=== PATIENT | female | born 1990 | race Caucasian/White ===

== ENCOUNTER 2017-11-14 05:30 | Inpatient (IN) | payer OTHER, SELFPAY ==
[2017-11-07 11:02] VITALS: BMI 33.5
[2017-11-14] VITALS (23 sets, daily range): BP systolic 88–121; BP diastolic 48–80; PULSE 64–85; RESP 16–20; TEMP 35.8–36.6; O2SAT 96–100; BMI 33.7
[2017-11-14] MEDS: Lactated Ringers 1,000 ML 999 ML IV (05:55)
[2017-11-14 06:13] LABS: Absolute Lymphocyte Count 2.35 X10^3/ul (0.83-4.51); Absolute Neutrophil Count 7.5 X10^3/uL (2.0-7.7); Basophil# 0.02 X10^3/uL; Basophil% 0.2 % (0-1); Eosinophil# 0.24 X10^3/uL; Eosinophils% 2.2 % (0-5); Hematocrit 38.5 % (37-47); Hemoglobin 13.7 g/dl (12.0-15.0); Lymphocyte # 2.35 X10^3/ul (4.0); Lymphocyte % 21.3 % (19-41); Mean Corp Hgb Conc 35.6 g/gl (32-36); Mean Corpuscular Hgb 31.6 pg (27.0-32.0); Mean Corpuscular Volume 88.7 fL (81-99); Mean Platelet Vol. 10.2 fl (6.2-12.0); Monocyte# 0.84 X10^3/uL; Monocyte% 7.6 % (0-10); Platelet Count 191 K/mm3 (150-450); RBC Distribution Width CV 12.8 % (11.6-14.6); RBC Distribution Width SD 41.2 fl (35.1-43.9); Red Blood Count 4.34 M/mm3 (4.2-5.4)
[2017-11-14 06:16] LABS: POSITIVE COUNT NO; POSITIVE DIFFERENTIAL NO; POSITIVE MORPHOLOGY NO
[2017-11-14] MEDS: Lactated Ringers 1,000 ML 150 ML IV (06:51)
[2017-11-14] MEDS: Sodium Citrate/Citric Acid 30 ML UDC PO (06:51)
[2017-11-14] MEDS: Cefazolin 2 GM in 0.9% Normal Saline 100 ML IV (07:04)
[2017-11-14] MEDS: Oxytocin 30 units/NS 500 ml 30 UNITS/500 ML IV.SOLN 167 UNITS IV (07:50)
[2017-11-14] MEDS: Ketorolac 30 MG/ML Syringe IV ×3 (08:09→19:18)
[2017-11-14] MEDS: Ondansetron 4 MG/2 ML Vial IV (08:09)
--- NOTE | 2017-11-14 08:44 | PCM.OB.CSR ---
Delivery Classification: Scheduled Final NAIDA: 11/19/17 Gestational age: 39 Weeks and 2 Days Indications for : Repeat Elective Description of Procedure: Patient taken to OR where spinal anesthesia placed. She was prepped and draped in normal sterile fashion in a dorsal lithotomy position with a leftward tilt. After ensuring adequacy of anesthesia the Pfannensteil skin incision was made and carried through to the underlying fascia w/ a bovie. The fascia was incised in the midline and carried laterally with the Doyle scissors. Scar tissue was noted involving the fascia, rectus muscle & peritoneum. The rectus muscles were off the fascia with the Metzenbaum scissors and cautery. The rectus muscles were then in the midline carefully using cautery & the Metzenbaum scissors. The peritoneum was grasped & entered carefully with the Metzenbaum scissors. The bladder flap was dissected down with the Metzenbaum scissors and blunt dissection. At this time a small uterine window (1cm)was noted on the right was noted. The fetus was vertex and the head was brought to the incision in the flexed position. With good fundal pressure the head did not deliver. Rectus muscles were carefully cut on both sides. The head then delivered easily with fundal pressure. Gentle traction placed on head to allow delivery of anterior & posterior shoulders. No excess traction placed on head. Body delivered easily. The cord was clamped and cut after 1 minute delay and the infant handed off to waiting RN. The placenta was delivered w/ gentle traction and fundal massage and the uterus was exteriorized and cleared of all clots and debris. The uterine incision was closed with 1 vicryl suture in a running locked fashion. The uterus was returned to the peritoneal cavity which was cleared of all clots and debris. Pelvis was irrigated. The uterine incision was reexamined and found to be hemostatic. Some preet was placed over the uterine incision & bladder peritoneum due to the denuded areas. The fascia was closed with looped PDS suture in a running standard fashion. The subcutaneous tissue was examined amd any bleeding bovie cauterized. The subcutaneous tissue was reapproximated with 3-0 vicryl suture. The skin was closed in a subcuticular fashion by the MEDICAL INSURANCE COLLECTOR with me present in the labor and delivery suite. I performed the remainder of the procedure w/ assistance. Amniotic Membrane Rupture Type: Artificial Amniotic Fluid Description: Clear Placenta [facility]: [facility] Drain: Tran to straight drain Fluids Replaced: 1 L Cord Entanglement: None Cord Vessel Description: 3 Vessels Esitmated Blood Loss (ml): 700ml Gender: Male (1 minute): 9 (5 minute): 9 Delayed cord clamping: Yes Pre-op Antibiotic Given: Ancef 2 grams IV x1
[2017-11-14] MEDS: Lactated Ringers 1,000 ML 100 ML IV ×3 (08:45→23:00)
--- NOTE | 2017-11-14 08:55 | OP.PCM_ITS ---
Delivery Classification: Scheduled Final NAIDA: 11/19/17 Gestational age: 39 Weeks and 2 Days Indications for : Repeat Elective Description of Procedure: Patient taken to OR where spinal anesthesia placed. She was prepped and draped in normal sterile fashion in a dorsal lithotomy position with a leftward tilt. After ensuring adequacy of anesthesia the Pfannensteil skin incision was made and carried through to the underlying fascia w/ a bovie. The fascia was incised in the midline and carried laterally with the Doyle scissors. Scar tissue was noted involving the fascia, rectus muscle & peritoneum. The rectus muscles were off the fascia with the Metzenbaum scissors and cautery. The rectus muscles were then in the midline carefully using cautery & the Metzenbaum scissors. The peritoneum was grasped & entered carefully with the Metzenbaum scissors. The bladder flap was dissected down with the Metzenbaum scissors and blunt dissection. At this time a small uterine window ( 1cm)was noted on the right was noted. The fetus was vertex and the head was brought to the incision in the flexed position. With good fundal pressure the head did not deliver. Rectus muscles were carefully cut on both sides. The head then delivered easily with fundal pressure. Gentle traction placed on head to allow delivery of anterior & posterior shoulders. No excess traction placed on head. Body delivered easily. The cord was clamped and cut after 1 minute delay and the handed off to waiting RN. The placenta was delivered w/ gentle traction and fundal massage and the uterus was exteriorized and cleared of all clots and debris. The uterine incision was closed with 1 vicryl suture in a running locked fashion. The uterus was returned to the peritoneal cavity which was cleared of all clots and debris. Pelvis was irrigated. The uterine incision was reexamined and found to be hemostatic. Some preet was placed over the uterine incision & bladder peritoneum due to the denuded areas. The fascia was closed with looped PDS suture in a running standard fashion. The subcutaneous tissue was examined amd any bleeding bovie cauterized. The subcutaneous tissue was reapproximated with 3-0 vicryl suture. The skin was closed in a subcuticular fashion by the TEMPLATE FITTER with me present in the labor and delivery suite. I performed the remainder of the procedure w/ assistance. Amniotic Membrane Rupture Type: Artificial Amniotic Fluid Description: Clear Placenta Disposition: [facility] Drain: Tran to straight drain Fluids Replaced: 1 L Cord Entanglement: None Cord Vessel Description: 3 Vessels Esitmated Blood Loss (ml): 700ml Gender: Male (1 minute): 9 (5 minute): 9 Delayed cord clamping: Yes Pre-op Antibiotic Given: Ancef 2 grams IV x1
[2017-11-14] MEDS: Methylergonovine 0.2 MG/ML Ampul IM (10:12)
[2017-11-15] VITALS (7 sets, daily range): BP systolic 92–116; BP diastolic 44–81; PULSE 66–78; RESP 16–18; TEMP 36.5–37.3; O2SAT 96–99
[2017-11-15] MEDS: Ketorolac 30 MG/ML Syringe IV ×4 (00:56→17:52)
[2017-11-15] MEDS: 0.9% Saline Lock 10 ML Syringe IV ×5 (00:56→17:55)
[2017-11-15 06:54] LABS: Hematocrit 32.4 % (37-47); Hemoglobin 10.9 g/dl (12.0-15.0); Mean Corp Hgb Conc 33.6 g/gl (32-36); Mean Corpuscular Hgb 30.2 pg (27.0-32.0); Mean Corpuscular Volume 89.8 fL (81-99); Mean Platelet Vol. 9.8 fl (6.2-12.0); Platelet Count 172 K/mm3 (150-450); RBC Distribution Width CV 12.9 % (11.6-14.6); Red Blood Count 3.61 M/mm3 (4.2-5.4); White Blood Count 9.5 K/mm3 (4.4-11.0)
[2017-11-15 06:58] LABS: Scan Indicated on CBC? Y/N NO
--- NOTE | 2017-11-15 07:57 | NURSING ---
Tran cath removed this morning without difficulty. Pt getting up to the shower. Denies difficulties or pain at this time. Baby to the [facility] nursery for 24 hour test.
[2017-11-15] MEDS: oxyCODONE 5 MG Tablet PO (11:19)
--- NOTE | 2017-11-15 11:34 | PCM.PN.OB ---
Subjective: Doing well per patient and nursing staff. Ambulating and taking PO without difficulty. Voiding and passing flatus. well, no complaints. Pain controlled by Oxycodone. Denies NIETO,visual changes, chest pain, SOB, increased vaginal bleeding or clots, no leg pain. Planning D/C home tomorrow. - Physical Exam General: Alert, Oriented x3, Cooperative HEENT: Atraumatic, Normocephalic Lungs: Clear to auscultation, Normal air movement, No rhonchi, No wheeze Cardiovascular: Regular rate, Regular Rhythm, No murmurs Abdomen: Bowel Sounds Present, Soft, Non Tender, - - Fundus firm 2 below U Extremities: No edema, - - Solomon's negative Psych/Mental Status: Normal Affect, Appropriate Vital Signs Temp Pulse Resp BP Pulse Ox 97.8 F 71 16 100/60 97 11/15/17 11:00 11/15/17 11:00 11/15/17 11:00 11/15/17 11:00 11/15/17 11:00 Oxygen Delivery Method Room Air Weight: 222 lb Body Mass Index (BMI) 33.7 Intake and Output for Last 24 Hours 11/13/17 11/14/17 11/15/17 23:59 23:59 23:59 Intake Total 4977 / 4977 1160 / 1160 Output Total 2275 / 2275 1800 / 1800 Balance 2702 / 2702 -640 / -640 Laboratory Tests Past 24 Hrs 11/14/17 11/15/17 11:10 06:40 WBC 9.5 RBC 3.61 L Hgb 10.9 L Hct 32.4 L MCV 89.8 MCH 30.2 MCHC 33.6 RDW 12.9 RDW Differential 42.0 Plt Count 172 MPV 9.8 Screen NEGATIVE Baby's Blood Type A POSITIVE Baby's [place] NEGATIVE Medical Necessity - Tobacco Use Smoking Status: Former smoker Assessment/Plan A: POD #1 Repeat Section P: 1) Routine postop care. Vital signs and labs stable. Urine output adequate. 2) Tran d/c'd 3) Planning D/C home tomorrow.
[2017-11-15] MEDS: Ibuprofen 600 MG Tablet PO (23:40)
[2017-11-16 01:30] VITALS: BP 111/54; PULSE 69; RESP 18; TEMP 36.8
[2017-11-16] MEDS: Ibuprofen 600 MG Tablet PO (05:27)
[2017-11-16] MEDS: oxyCODONE 5 MG Tablet PO (05:28)
[2017-11-16 07:51] VITALS: BP 113/75; PULSE 70; RESP 18; TEMP 36.9; O2SAT 96
--- NOTE | 2017-11-16 08:29 | PCM.PN.OB ---
Subjective: No complaints - Physical Exam General: Alert, Oriented x3 Abdomen: Soft, Non Tender, Non-Distended - ff mid & below umb; incision - c/d/i Extremities: No Calf Tenderness Vital Signs Temp Pulse Resp BP Pulse Ox 98.5 F 70 18 113/75 96 11/16/17 07:51 11/16/17 07:51 11/16/17 07:51 11/16/17 07:51 11/16/17 07:51 Oxygen Delivery Method Room Air Weight: 222 lb Body Mass Index (BMI) 33.7 Intake and Output for Last 24 Hours 11/14/17 11/15/17 11/16/17 23:59 23:59 23:59 Intake Total 4977 / 4977 1160 / 1160 Output Total 2275 / 2275 1800 / 1800 Balance 2702 / 2702 -640 / -640 Medical Necessity - Tobacco Use Smoking Status: Former smoker Assessment/Plan A&P: POD#2 D/c home later today per patient request
--- NOTE | 2017-11-16 08:35 | DCINST_ITS ---
Discharge Diet: No Restrictions Discharge Activity: May not drive while taking narcotic pain medications., May Shower May resume sexual activity in: 4-6 weeks Weight Bearing Status: Weight bearing as tolerated Call your doctor if your incision/area has: Continuous Slow Oozing, Sudden Increased Bleeding, Increased Pain/ Swelling, Increased Redness, Foul Smelling Discharge, Swelling at the incision site Additional Instructions: If you experience any of the following, contact your healthcare provider. * Bleeding that soaks a pad every hour for 2 hours * Fever 100.4 or higher * Unrelieved incision or abdominal pain * Swelling, redness, discharge or bleeding from your incision or episiotomy site * Your incision begins to separate * Problems urinating (including inability to urinate or burning while urinating) . * Visual changes * Severe headache * Flu-like symptoms * Pain or redness in one of both of your breasts * Pain, warmth, tenderness or swelling in your legs, especially the calf area * Frequent nausea and vomiting * Symptoms of depression or anxiety If you experience any of the following, call 911 or go to the nearest Emergency Room. * Chest pain * Problems breathing * Seizure activity * Partial or complete paralysis of a body part, slurred speech, weakness or drooping of the face, or a sudden inability to walk or hold your balance Allergies/Adverse Reactions: Allergies No Known Allergies Allergy (Unverified 08/11/14 13:42) Medications to take at Discharge Vits [Prenatabs FA ] 1 tablet PO DAILY 08/11/14 Ranitidine [Zantac] 150 mg PO DAILY PRN 11/07/17 Ibuprofen [Ibu] 600 mg PO Q6H PRN PRN #40 tab 11/16/17 Oxycodone HCl/Acetaminophen [Percocet 5/325] 1 tab PO Q6H PRN PRN 7 Days #28 tab 11/16/17 The following prescriptions were given: Ibuprofen [Ibu] 600 mg PO Q6H PRN PRN #40 tab PRN Reason: Pain Oxycodone HCl/Acetaminophen [Percocet 5/325] 1 tab PO Q6H PRN PRN 7 Days #28 tab PRN Reason: Pain Follow-Up: Call to make an appointment with your doctor for an incision check in 1-2 weeks. You will also need a 6 week post- follow up appointment. Test results from this visit will be discussed in further detail at your follow- up appointment, if applicable.
[2017-11-16] MEDS: Polyethylene Glycol 3350 17 GM PACKET PO (09:28)
[2017-11-16 14:48] VITALS: BP 123/66; PULSE 80; RESP 18; TEMP 36.7; O2SAT 96
--- NOTE | 2017-11-16 15:27 | NURSING ---
11/16/17 1300 Patient Rubella non immune. Patient given MMR information sheet, declines MMR vaccine at this time.
--- NOTE | 2017-11-16 15:51 | CASEMGMT ---
Social Work Assessment Labor and Delivery Unit Date of Referral: 11/16/2017 Time of Referral: 1445 Referred By: Dr. Coello Date of Intervention: 11/16/2017 Time of Intervention: 1515 Reason for Referral: Maternal History of depression History obtained from: Medical record and mother of baby (MOB) Jordyn Cantu Household composition: MOB and older children live together, and MOB plans to take to this home as well. MOB denies any concerns or safety concerns with home situation. Patient's parent/guardian status: MOB (age 27) and reported father of baby (FOB) Gilbert Laurent (age 36) are no longer together. MOB reports FOAbrahan just moved out of state, after two years together. MOB denies any mistreatment by Gilbert, but not expansive about cinthya Hunt moved out of state. MOB has 3 children now. The oldest two have the same father, medical record indicates the oldest father to be a Efra Tamez. Minor Children include Jeramy Laurent (born 11-14-2017), Jose Tamez (born 08-14-2014), and José Luis Tamez (born 11/18/2011). Medical History: MOB is G4, P2 to 3 after delivering Beck[place]. MOB delivered Beck[place]eyer via repeat caesarian section, weighing 7 pounds 15 ounces, Apgars 9 and 9. 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 No reported problems with reading or writing or learning comprehension. 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 Childcare/Caregiver(s): MOB and then MOBs aunt babysits when MOB is working. Transportation: No reported issues. Programs/Agencies Involved: MOB has WIC and then for middle child has Head Start. MOB reports was over income for food stamps but may reapply now that has a and not working. Behavioral Health Issues: MOB reports as a minor did have some counseling. MOB reports some depression after first child, which lasted for about 2 months. MOB reports felt more distant and had a harder time bonding, but eventually these feelings lessened and MOB did develop a harrison. MOB reports had a 32 hour labor, and then emergency caesarian section, and did not get to hold or see José Luis until after 10 hours of . MOB reports did not feel to have any issues after Jose was born. MOB denies any thoughts, plans, intent, or history of attempts of suicide. No reports of any thoughts, harm intent to harm others either. No reports of any drug or alcohol use. Former tobacco use. Drug screen prenatally on 04-14-17 negative. Family/Social Stressors: MOB with third child, and father of this child just moved out of state. MOB admits to feeling a bit sad about this. Support Systems: MOB reports a strong support from her mother who lives locally and will be staying with MOB and children for a few days. MOB reports the older boys father does pay child support and also has visitation. MOB reports will ask for help from family if needed. ASSESSMENT: MOB cooperative and pleasant, but ready to go when social media coordinator presented to the room for assessment. Assessment brief in length. MOB quiet, answered questions, not real expansive. Mood appearing sad, though MOB smiled at baby and smiled when talking about the baby. Affect flattened. This aligner typewriter left the room to get some additional resources and upon returning, MOB cried briefly, admitting to some sadness regarding FOBs absence. Broached counseling as another source of support for MOB, in light of changes with a new baby and feelings about separation from FOB. MOB repots may consider this, but would like to see how does at home for a few days. Educated MOB to area resources providing counseling, depression packet given including education about anxiety as another potential complication. Educated to online supports, provided [facility] packet and verbally reviewed some pertinent resources. MOB accepted information and thanked this aligner typewriter. MOB reports twill have help at home going, reports to have needed supplies, reports to feel a loving harrison with this baby. Observed MOB to be attentive to , gentle, and smiling at baby. PLAN: MOB and infant to home with support from MOBs mother. Resources given and education on where to turn if decides that wants additional emotional support. No other services requested or indicated. -ROSITA Rod, STAFF CONSULTANT
== END 2017-11-16 15:20 | disposition home or self-care (01) | DRG 766 ==
PROVIDERS: Admitting Provider Obstetrics & Gynecology; Visit Provider Obstetrics & Gynecology
PROC: 10D00Z1 Extraction of Products of Conception, Low, Open Approach (ICD-10-PCS; CPT 59514; principal; 2017-11-14 07:15)
DX: O34.211 Maternal care for low transverse scar from previous cesarean delivery (principal); Z37.0 Single live birth; Z3A.39 39 weeks gestation of pregnancy; Z87.891 Personal history of nicotine dependence
CPT/HCPCS: 85025; 85027; 85461; 86850; 86900; 86901; 90384; 99218; J7120; A4216; G0378; J2405; J2790

== ENCOUNTER → 2020-01-09 11:09 | Outpatient (CLI) | payer MEDICARE, SELFPAY ==
[2018-12-12 09:54] VITALS: BMI 33.7
== END ==
PROVIDERS: Referring Provider Family Medicine; Visit Provider Family Medicine
DX: Z20.828 Contact with and (suspected) exposure to other viral communicable diseases (principal)
CPT/HCPCS: 87635; U0003

== ENCOUNTER 2022-04-14 07:04 | Day surgery (SDC) | payer OTHER, SELFPAY ==
[2022-04-11 15:29] LABS: Hematocrit 45.5 % (37-47); Mean Corp Hgb Conc 35.2 g/dL (32-36); Mean Corpuscular Hgb 31.3 pg (27.0-32.0); Mean Corpuscular Volume 88.9 fL (81-99); Mean Platelet Vol. 10.1 fl (6.2-12.0); Platelet Count 246 K/mm3 (150-450); RBC Distribution Width CV 11.9 % (11.6-14.6); RBC Distribution Width SD 38.3 fl (35.1-43.9); Red Blood Count 5.12 M/mm3 (4.2-5.4); White Blood Count 6.7 K/mm3 (4.4-11.0)
--- NOTE | 2022-04-13 15:16 | PCM.HP.BLA ---
History and Physical Date of Admission: 04/14/22 Pre-Op History and Physical ? HPI: The patient is a 32 year old female presenting for sterilization consultation. Patient previously saw Dr.Karmon Louise and was interested in permanent sterilization. Patient previously had Mirena IUD but that was removed. Patient states has PCOS and since starting metformin has regular cycles. Patient is not interested in any further childbearing capabilities. Patient states between her and her fianc? to have 6 children. Patient has a history of 3 children born via . No other abdominal surgeries. ? Pre-operative visit. She is scheduled for Laparoscopic Salpingectomy , for desires permanent sterilization on 04/14/22. Procedure discussed along with risks, benefits and complications. Other alternatives discussed for management. Consent form signed? Yes. ? ? PAST MEDICAL HISTORY PAST MEDICAL HISTORY Diagnosis Date ? Anxiety and depression 08/02/2021 ? Chlamydia 2015 ? History of pre-eclampsia in prior , currently ? ? NEGATIVE MEDICAL HISTORY ? ? Rubella non-immune status, antepartum 05/16/2017 ? ? PAST SURGICAL HISTORY PAST SURGICAL HISTORY Procedure Laterality Date ? ANESTH, SECTION ? ? ? DELIVERY ONLY ? 11/18/11 ? , low transverse ? DELIVERY ONLY ? 08/14/14 ? , low transverse ? DELIVERY ONLY ? 11/14/2017 ? , low transverse ? INSERTION OF IUD ? 07/24/15 ? INSERTION OF IUD ? 04/23/2019 ? ? ? CURRENT MEDICATIONS Current Outpatient Medications Medication Sig Dispense Refill ? metFORMIN (GLUCOPHAGE) 500 mg tablet Take 1 tablet by mouth twice daily with meals. START with taking once daily for 2 weeks and then 2 times daily with meals. 60 tablet 1 ? busPIRone (BUSPAR) 10 mg tablet Take 1 tablet by mouth twice daily. 60 tablet 2 ? sertraline (ZOLOFT) 100 mg tablet Take 1 tablet by mouth once daily. 90 tablet 1 ? ergocalciferol 50,000 unit capsule (VITAMIN D2, DRISDOL) Take 1 capsule by mouth one time a week. 12 capsule 0 ? No current facility-administered medications for this visit. ? ? ALLERGIES: Patient has no known allergies. ? PERSONAL HISTORY: SOCIAL HISTORY Social History ? Tobacco Use ? Smoking status: Former ? ? Types: Cigarettes ? Smokeless tobacco: Never Vaping Use ? Vaping Use: Never used Substance Use Topics ? Alcohol use: No ? Drug use: No ? FAMILY HISTORY: FAMILY HISTORY FAMILY HISTORY Problem Relation Age of Onset ? Cancer Mother ? ? THYROID CANCER ? Depression Mother ? ? Cancer Father ? ? THYROID CANCER ? Anxiety disorder Brother ? ? Arthritis Maternal Grandmother ? ? Hypertension Maternal Grandmother ? ? Heart Maternal Grandfather ? ? Hypertension Maternal Grandfather ? ? Hypertension Paternal Grandmother ? ? Breast Cancer Paternal Grandmother ? ? Hypertension Paternal Grandfather ? ? Heart Paternal Grandfather ? ? ? REVIEW OF SYMPTOMS: negative except as noted above PHYSICAL EXAMINATION: ? VITALS: Blood pressure 120/70, weight 229 lb (103.9 kg), last menstrual period 03/24/2022. ? GENERAL: The patient is well nourished, well hydrated in no acute distress. , The patient is oriented to time, place, and person. NECK: full range of motion LUNGS: Clear to auscultation bilaterally. no wheezes, rhonchi or rales HEART: Regular rate and rhythm, Normal heart sounds, and No murmurs or gallops GENITALIA: deferred WET PREP: Not indicated ? IMPRESSION: who desires permanent sterilization ? PLAN: laparoscopic bilateral salpingectomy ? Pt has been counseled on risks/benefits and alternatives of surgery including but not limited to anesthesia, bleeding, infection, injury to pelvic structures including bowel, bladder, ureters and vessels. Pt wishes to proceed with surgery at this time. Risk of regret reviewed. Risk of possible blood transfusion reviewed. ? Pre and post op instructions reviewed ? ? I have reviewed and updated past medical and surgical history, medications and allergies Martina Maurer MD ?9:33 AM
[2022-04-14] VITALS (8 sets, daily range): BP systolic 93–110; BP diastolic 59–76; PULSE 70–101; RESP 16–18; TEMP 36.4–37.3; O2SAT 95–100; BMI 35.9
--- NOTE | 2022-04-14 | FALS_PTH ---
PATIENT: MRAIA ESTHER ASHFORD LOC: [facility] [place] U#:[id number] AGE/SX: 32/F ROOM: RE04/14/[address]: Dr. Martina Pineda, MDDOB: 1990 BED: DIS: 04/14/2022 SPEC #: [id number] RECD: 04/14/22 13:13 STATUS: MEGAN NGUYEN #: [id number] FANNIE: 04/14/22 00:[address]: Martina Pineda DEPT: SURGICAL PATHOLOGY RECD BY: Rodríguez Harrington ENTERED: 04/14/22 13:13 SP TYPE: FALL TUBES OTHR DR: Tosin Aguirre, HOUSING MANAGEMENT REPRESENTATIVE-C Tissues: Fallopian tube Procedures: Surgery Specimen Level II HEADER OPERATION: Laparoscopic bilateral salpingectomy PRE-OP DIAGNOSIS: Sterilization TISSUE SUBMITTED: Bilateral fallopian tubes MICROSCOPIC DIAGNOSIS Bilateral fallopian tubes, salpingectomy: Bilateral fallopian tubes, no pathologic diagnosis. SOSA:daniel 04/15/2022 MICROSCOPIC DESCRIPTION Slides are reviewed. GROSS DESCRIPTION Received in fixative is one container labeled with the patient's name and designated bilateral fallopian tubes. The specimen consists of bilateral fallopian tubes including fimbrial ends each measuring 5 cm in length and up to 1 cm in diameter. Also present in the container are four detached pieces of fallopian tube measuring in aggregate 3 x 1 x 0.3 cm. The fallopian tubes are not identified as right or left. Sections reveal unremarkable cut surfaces. [employer] Developer sections are submitted in two cassettes with each cassette containing one fallopian tube. Cassette 1 also contains the detached portion of fallopian tube. / SOSA:daniel 04/14/2022 TC:4 CPT: 37213 x2
[2022-04-14 07:42] LABS: Internal QC Validated? YES +Cl - CLEAR BKGD
[2022-04-14 07:43] LABS: Pregnancy, Urine Negative Negative
[2022-04-14] MEDS: Lactated Ringers 1,000 ML 15 ML IV ×2 (07:49→09:01)
--- NOTE | 2022-04-14 09:31 | OP.PCM_ITS ---
Report of Operation Date of Procedure: 04/14/22 Pre-Operative Diagnosis: desires sterilization Post-Operative Diagnosis: same, Omental Adehesions Surgery/Procedure Performed:: Laparoscpoic Bilateral salpingectomy, lysis of adhesions Description of Surgical Findings:: OMental adhesions to anterior abdominal wall preventing visualization of uterus- taken down prior to start of case. Uterus, tubes and ovaries were normal. Surgeon: Martina Pineda Type of Anesthesia: General and Local Special Medications: 0.25%marcaine Specimen's removed: Bilateral fallopian tubes Drains: none Estimated Blood Loss (mL): 5cc Fluids Replaced: 1000 Description of Procedure: After informed consent was obtained patient was taken to the operating room she was placed in supine position she was given anesthesia. She was then placed in the [facility] stirrups and she was prepped and draped in normal sterile fashion. Bladder was drained prior to the start of procedure. At this time attention was turned to the vaginal portion where weighted speculum placed at posterior fornix vagina single-tooth tenaculum was used to gently grasp the internal the cervix. uterus was gently sounded to approximately 8cm. Uterine manipulator was placed without difficulty. Legs then placed in parallel with the abdomen the tenaculum and the weighted speculum were removed. 2 towel clamps were placed at level of umbilicus. Marcaine was injected infraumbilical and a small incision was made. The 5 mm trocar was placed under direct visualization. CO2 gas was used to insufflate the intra-abdominal cavity. Upon inspection omental adhesions to anterior abdominal wall that were preventing visualization of pelvis structures. decision to perform Lysis of adhesions. At this time then the LLQ and RLQ ports were placed First Marcaine was injected and small incision was made a knife and the 5 mm trocars were placed. At this time Enseal was used to perform lysis of adhesions- adhesions were filmy- no bowel noted in adhesions. good hemostasis. Lysis of adhesions complete and evaulation of pelvic structures revealsed no gross abnormalities. At this time then tubes were traced back to the fimbriated ends. Enseal was used to coagulate and ligate along mesosalpynx bilaterally until tubes removed completely. tubes would were not able to be removed thru 5mm ports so a 5mm endocatch bag was placed and tubes were removed with bag. Good hemostasis was appreciated. At this time procedure was deemed complete successful. The gas was desufflated on from the intra-abdominal cavity. The trochars were removed. Skin was closed using 4-0 Monocryl in a subcutaneous fashion. Dermabond glue was placed. Instrument lap and needle counts were correct ?2. The uterine manipulator was removed. Vaginal sweep was performed it was negative. There were no complications anticipated normal postoperative course for this patient. Grafts/Implants Used: none Procedure Start Time: 09:04 Procedure Stop Time: 09:31 Complications none Admit VTE Documentation VTE Present on Admission: Yes VTE Mechan Device Prophylaxis: SCD's VTE Pharm Prophylaxis ordered?: No Reason prophylaxis not ordered:: Procedure Not Indicated
--- NOTE | 2022-04-14 09:38 | DCINST_ITS ---
Discharge Instructions Procedure Other Diet Discharge Diet: No restrictions Activity May resume sexual activity in: 2 weeks Lifting Restrictions: 20-25 lbs Dressing / Incision Call your doctor if your incision/area has: Continuous Slow Oozing, Sudden Increased Bleeding, Increased Pain/ Swelling, Increased Redness, Foul Smelling Discharge and Swelling at the incision site Call your doctor if you observe: Fever of 101 or Higher, Inability to urinate, Inability to have a bowel movement, Using more than 1 pad per hour and Uncontrolled pain Additional Dressing/Incision Instructions:: You have skin glue over your incision sites, do not pick off. You may shower and let the soap and water run over the incision sites and dab dry. Follow Up Care Please Follow Up With: Martina Pineda MD When: 1-2 weeks post OP if you need an appointment please call [phone] Test Results: Test results from this visit will be discussed in further detail at your follow- up appointment, if applicable. Discharge Plan Admission Attending Provider: Martina Pineda Primary Care Provider: Tosin Hill NP Discharge Orders/Prescriptions Prescriptions: No Action metformin 500 mg Tablet 500 mg PO BID sertraline 100 mg Tablet 100 mg PO DAILY buspirone [BuSpar] 10 mg Tablet 10 mg PO BID Referrals / Follow Up: Tosin Hill NP, [facility] [employer] [Primary Care Provider] - Disposition Disposition (needs filled in before D/C Order can be placed): Home, Self Care
[2022-04-14] MEDS: HYDROcodone Bitartrate/Apap 5/325 Tablet PO (11:12)
== END 2022-04-14 11:44 | disposition home or self-care (01) ==
LOC: SDC 07:06 → AC 07:06
PROVIDERS: PCP Nurse Practitioner; Referring Provider Obstetrics & Gynecology; Visit Provider Obstetrics & Gynecology
PROC: (CPT 58661; principal; 2022-04-14 08:40)
DX: Z30.2 Encounter for sterilization (principal); Z79.899 Other long term (current) drug therapy
CPT/HCPCS: 58661; 00840; 36415; 81025; 85027; 88302; J7120; C1760; J2405